=== PATIENT | female | born 1970 | race Caucasian/White ===

== ENCOUNTER 2018-09-07 22:34 | Emergency (ER) | payer BC ==
[2018-09-07] MEDS ORDERED: LORazepam TAB(*) 1 MG PO ONE (22:56)
--- NOTE | 2018-09-07 23:22 | ED ---
Shortness of Breath - HPI Summary HPI Summary: 48-year-old female presents with sudden onset of shortness breath today. States it feels like she can't get in a deep breath. She states symptoms started with epigastric pain that she thought was ingestion after dinner but that pain has since resolved. Denies any chest pain. No palpitations. She states that her extremities feel numbness and tingling. She denies any pains or swelling in her calf muscles. No current abdominal pain. No nausea vomiting. No fevers. This has never happened before. No medical conditions. she does have family history of blood clots. No recent travel. Nonsmoker. Nothing makes her symptoms better or worse. - History of Current Complaint Chief Complaint: EDShortnessOfBreath Time Seen by Provider: 09/07/18 22:44 - Allergy/Home Medications Allergies/Adverse Reactions: Allergies Allergy/AdvReac Type Severity Reaction Status Date / Time amoxicillin Allergy Hives Verified 09/07/18 22:47 Home Medications: Home Medications Norgestimate-Ethinyl Estradiol [Norg-Ee 0.18-0.215-0.25/0.025] 1 tab PO DAILY [History Confirmed 09/07/18] PMH/Surg Hx/FS Hx/Imm Hx Endocrine/Hematology History: Denies: Hx Diabetes Cardiovascular History: Denies: Hx Hypertension, Hx Pacemaker/ICD Respiratory History: Denies: Hx Asthma, Hx Chronic Obstructive Pulmonary Disease (COPD) History: Denies: Hx Renal Disease Sensory History: Denies: Hx Hearing Aid Psychiatric History: Denies: Hx Panic Disorder - Cancer History Hx Chemotherapy: No Hx Radiation Therapy: No - Surgical History Surgery Procedure, Year, and Place: ABDOMEN LAP;. ;. WISDOM TEETH; - Immunization History Date of Tetanus Vaccine: unk Date of Influenza Vaccine: fall 2017 Infectious Disease History: No Infectious Disease History: Denies: Traveled Outside the [place] in Last 30 Days - Family History Known Family History: Positive: Blood Disorder - Social History Alcohol Use: None Substance Use Type: Reports: None Smoking Status (MU): Never Smoked Tobacco Review of Systems Negative: Fever Negative: Palpitations, Chest Pain Positive: Shortness Of Breath Positive: Abdominal Pain - resolved. Negative: Vomiting, Nausea All Other Systems Reviewed And Are Negative: Yes Physical Exam Triage Information Reviewed: Yes Vital Signs On Initial Exam: Initial Vitals Temp Pulse Resp BP Pulse Ox 96.8 F 69 20 121/85 100 09/07/18 22:36 09/07/18 22:36 09/07/18 22:36 09/07/18 22:36 09/07/18 22:36 Vital Signs Reviewed: Yes Appearance: Positive: Well-Appearing Skin: Positive: Warm, Dry Head/Face: Positive: Normal Head/Face Inspection Eyes: Positive: Normal, Conjunctiva Clear ENT: Positive: Pharynx normal Respiratory/Lung Sounds: Positive: Clear to Auscultation, Breath Sounds Present Cardiovascular: Positive: Normal, RRR Abdomen Description: Positive: Nontender, Soft Bowel Sounds: Positive: Present Musculoskeletal: Positive: Normal Neurological: Positive: Normal Psychiatric: Positive: Anxious Diagnostics - Vital Signs Vital Signs Temp Pulse Resp BP Pulse Ox 09/07/18 23:11 16 09/07/18 22:49 76 25 132/79 100 09/07/18 22:36 96.8 F 69 20 121/85 100 - Laboratory Result Diagrams: 09/07/18 23:20 09/07/18 23:20 Lab Statement: Any lab studies that have been ordered have been reviewed, and results considered in the medical decision making process. - Radiology chest Radiology Interpretation Completed By: ED Physician Summary of Radiographic Findings: no active disease - EKG No standard instances Cardiac Rate: NL EKG Rhythm: Sinus Rhythm Summary of EKG Findings: sinus rhythm Re-Evaluation - Re-Evaluation First Eval Re-Evaluation Time: 00:41 Change: Improved Comment: symptoms resolved Course/Dx - Course Course Of Treatment: 48-year-old female presents with sudden onset of shortness breath today. States it feels like she can't get in a deep breath. She states symptoms started with epigastric pain that she thought was ingestion after dinner but that pain has since resolved. Denies any chest pain. No palpitations. She states that her extremities feel numbness and tingling. She denies any pains or swelling in her calf muscles. No current abdominal pain. No nausea vomiting. No fevers. This has never happened before. No medical conditions. she does have family history of blood clots. No recent travel. Nonsmoker. Nothing makes her symptoms better or worse. On exam patient appears anxious. Lungs to auscultation. Heart regular rate and rhythm. Vital stable. EKG shows sinus rhythm. wbc normal. d-dimer negative. chest xray normal as read by me. troponin zero. electrolytes normal. lactic elevated at 2.6 likely due to hyperventilation. gave a dose of ativan and symptoms resolved. discussed likely having a panic attack. patient declined any medication for at home at this time. patient understand and agrees with plan. - Diagnoses Differential Diagnosis/HQI/PQRI: Positive: Pneumothorax, Pulmonary Embolism, Other - anxiety Provider Diagnoses: Anxiety Discharge - Sign-Out/Discharge Documenting (check all that apply): Patient Departure Patient Received Moderate/Deep Sedation with Procedure: No - Discharge Plan Condition: Good Disposition: HOME Patient Education Materials: Anxiety (ED) Referrals: Zaki Whaley MD [Primary Care Provider] - Additional Instructions: Practice deep breathing Follow up with primary Return to ED if develop any new or worsening symptoms - Billing Disposition and Condition Condition: GOOD Disposition: Home
[2018-09-07 23:30] LABS: ABS Basophils 0.1 10^3/ul (0-0.2); ABS Eosinophils 0.1 10^3/ul (0-0.6); ABS Lymphocytes 2.6 10^3/ul (1.0-4.8); ABS Monocytes 0.4 10^3/ul (0-0.8); ABS Neutrophils 2.3 10^3/ul (1.5-7.7); Eosinophil % 2.4 %; Hematocrit 41 % (35-47); Hemoglobin 14.4 g/dL (12.0-16.0); Lymphocyte % 48.3 %; Mean Corpuscular HGB Conc 35 g/dL (31-36); Mean Corpuscular Hemoglobin 34 pg (27-31); Mean Corpuscular Volume 96 fL (80-97); Mean Platelet Volume 8.7 fL (7.4-10.4); Nucleated Red Blood Cells % 0.2; Platelet Count 300 10^3/uL (150-450); Red Blood Count 4.27 10^6 /uL (3.70-4.87); Red Cell Distribution Width 13 % (10.5-15); White Blood Count 5.5 10^3/uL (3.5-10.8)
[2018-09-07 23:46] LABS: Albumin 4.1 g/dL (3.2-5.2); Albumin/Globulin Ratio 1.4 (1-3); BUN/Creatinine Ratio 16.9 (8-20); C Reactive Protein 10.2 mg/L (<8.01); Calcium 9.3 mg/dL (8.6-10.3); EGFR African American 89.6 (>60); Potassium 3.6 mmol/L (3.5-5.0); Total Bilirubin 0.9 mg/dL (0.2-1.0); Total Protein 7.1 g/dL (6.4-8.9)
[2018-09-08 01:09] VITALS: BP 128/90
== END 2018-09-08 00:55 | disposition home or self-care (01) ==
LOC: ED 22:34
DX: F41.9 Anxiety disorder, unspecified (principal); R06.02 Shortness of breath; R10.9 Unspecified abdominal pain
CPT/HCPCS: 36415; 71046; 80053; 83605; 83880; 84484; 85025; 85379; 86140; 93005; 99283; A9270-GY